=== PATIENT | male | born 1995 | race Caucasian/White ===

== ENCOUNTER → 2021-04-18 13:42 | Outpatient (BNVA) | payer OTHER, SELFPAY | PROVIDERS: Visit Provider Nurse Practitioner Family | DX: Z20.822 Contact with and (suspected) exposure to COVID-19 (principal) | CPT/HCPCS: 87635 ==

== ENCOUNTER → 2024-04-12 17:41 | Outpatient (BNVA) | payer SELFPAY | PROVIDERS: Visit Provider Emergency Medicine | DX: R39.9 Unspecified symptoms and signs involving the genitourinary system (principal); R30.0 Dysuria | CPT/HCPCS: 81000; 87086 ==

== ENCOUNTER 2024-09-18 17:49 | Emergency (ER) | payer SELFPAY ==
[2024-09-18 17:52] VITALS: BMI 30.7
[2024-09-18 18:10] LABS: Glucose Point of Care 102 mg/dL (70-110)
[2024-09-18 18:12] VITALS: BP 167/103; PULSE 101; RESP 13; O2SAT 98
--- NOTE | 2024-09-18 18:15 | CTR_ITS ---
PROCEDURE INFORMATION: Exam: CT Head Without Contrast Exam date and time: 09/18/2024 6:35 PM Age: 29 years old Clinical indication: Stroke-like symptoms; Left upper extremity numbness/paresthesia; Additional info: Symptoms of acute stroke TECHNIQUE: Imaging protocol: Computed tomography of the head without contrast. Radiation optimization: All CT scans at this facility use at least one of these dose optimization techniques: automated exposure control; mA and/or kV adjustment per patient size (includes targeted exams where dose is matched to clinical indication); or iterative reconstruction. Other technique: STROKE PROTOCOL was implemented. COMPARISON: No relevant prior studies available. RADIATION DOSE METRICS: Total DLP (mGy-cm): 75423.58 FINDINGS: Brain: Normal. No hemorrhage. Unremarkable white matter. No mass effect. Cerebral ventricles: No ventriculomegaly. Paranasal sinuses: Visualized sinuses are unremarkable. No fluid levels. Mastoid air cells: Visualized mastoid air cells are well aerated. Bones: Unremarkable. No acute fracture. Soft tissues: Unremarkable. CT/CT head thrombolytic 50152 IMPRESSION: No acute intracranial abnormality on CT. Further evaluation with MR may be considered if there is persistent suspicion for occult ischemia or other significant intracranial changes. ASSESSMENT: ASPECTS ([place] Stroke Program Early CT Score) is 10.
--- NOTE | 2024-09-18 18:15 | ECG_ITS ---
[facility] Test Date: 2024-09-18 Pat Name: Jong Rowell Department: Room: Gender: Male Field Contractor: : 1995 Requested By: Christian Patel Order Number: [id number] Claus MD: Joe Andrade M.D. Measurements Intervals [place] Rate: 84 P: 52 OK: 163 QRS: 77 QRSD: 99 T: 39 QT: 343 QTc: 407 Interpretive Statements SINUS RHYTHM No previous ECG available for comparison Electronically Signed On 09-19-2024 21:38:15 TRANSMISSIONS SYSTEMS OPERATOR by Joe Andrade M.D. [email or web address]
[2024-09-18 18:31] LABS: Basophils # 0.1 10^3/uL (0.0-0.1); Basophils % 0.6 %; Eosinophils # 0.3 10^3/uL (0.0-0.8); Eosinophils % 3.5 %; Hematocrit 44.7 % (37-53); Lymphocytes % 25.1 %; Mean Corpuscular HGB Conc 35.3 g/dL (30-55); Mean Corpuscular Hemoglobin 29.8 pg (27-33); Mean Corpuscular Volume 84.3 fl (82-101); Monocytes # 0.7 10^3/uL (0.2-0.9); Monocytes % 8.3 %; Neutrophils # 4.91 10^3/uL (1.8-7.7); Neutrophils % 62.1 %; Nucleated Red Blood Cells % 0 %; Platelet Count 284 10^3/cmm (157-399); Red Cell Distribution Width 11.9 % (12.1-15.1); White Blood Count 7.92 10^3/uL (3.29-11.43)
[2024-09-18 18:47] LABS: INR 0.91 (0.8-1.2); Partial Thromboplastin Time 31.7 SECONDS (23.9-36.7)
[2024-09-18 18:48] VITALS: BP 156/96; PULSE 85; O2SAT 94
[2024-09-18 18:54] LABS: Troponin(5th) Baseline < 6 ng/L (0-15)
--- NOTE | 2024-09-18 18:54 | ED_ITS ---
HPI - Neuro Symptoms/Deficit 2 General: Chief Complaint: Neuro Symptoms/Deficit Stated Complaint: HP left numbness Time Seen by Provider: 09/18/24 18:42 History of Present Illness: The patient presents to the ER with a chief complaint of elevated blood pressure, which was measured at 180/100. The patient reports a history of hypertension and high blood pressure. They also mention experiencing stress recently. The patient is experiencing symptoms of facial weakness, mainly affecting the eye and mouth. They deny any other symptoms of weakness or discoordination in their limbs. The patient has a history of headaches but is not currently experiencing one. They report no chest pain, shortness of breath, or issues with bodily functions such as urination and defecation. The patient notes increased urination today due to increased water intake. The patient was previously seen at an Urgent Care facility and was prescribed Acyclovir. Related Data Home Medications Medication Instructions Recorded Confirmed metoprolol succinate 50 mg 50 mg PO DAILY 09/18/24 09/18/24 tablet,extended release 24 hr Previous Rx's Medication Instructions Recorded acyclovir 800 mg tablet 800 mg PO TID 10 days #30 tabs 09/18/24 prednisone 10 mg tablet 25 mg (2.5 x 10 mg) PO BID 5 days 09/18/24 #25 tabs Allergies Allergy/AdvReac Type Severity Reaction Status Date / Time cefdinir Allergy Intermediate hives Verified 09/18/24 16:02 PFS ED 2 PFSH: Social History Smoking and tobacco/nicotine status: never used tobacco/nicotine Alcohol intake: current Alcohol intake frequency: holidays/special occasions only Substance/Drug Use: current Substance/Drug use frequency: Special occassions/opportunity only Physical Exam 2 Const: COMMON NORMALS: no acute distress, patient oriented x3, healthy appearing, alert and well nourished HENMT: COMMON NORMALS: normocephalic HEAD & SCALP: normocephalic Eye: COMMON NORMALS: EOMs intact bilaterally Neck/C-Spine: COMMON NORMALS: full ROM and supple Resp: COMMON NORMALS: normal respiratory effort, No retractions and clear to auscultation bilaterally AUSCULTATION: clear to auscultation bilaterally Cardio: COMMON NORMALS: regular rate, regular rhythm, No gallops present (Cardio) and No murmurs present (Cardio) RATE: regular rate RHYTHM: r egular rhythm GI: COMMON NORMALS: Soft to palpation and non-tender PALPATION: Yes Soft to palpation Extremity: GENERAL: Yes normal exam except as noted Neuro: COMMON NORMALS: patient oriented x3 SENSORIUM/ORIENTATION: Yes alert CRANIAL NERVES: Yes CN normal except as noted and Yes CN VII (facial) Laterality: left CN VII left: facial droop, flattened naso-labial fold, unable to puff cheeks, weak closing of eye(s) and asymmetrical smile Skin: COMMON NORMALS: no rashes or lesions noted GENERAL SKIN EXAM: no rashes or lesions noted Course 2 Vital Signs: Vital signs: Vital Signs Pulse Rate 85 09/18/24 18:48 Respiratory Rate 13 09/18/24 18:12 Blood Pressure 156/96 09/18/24 18:48 Pulse Oximetry 94 09/18/24 18:48 MDM - Neuro Symptoms/Deficit Medical Decision Making 29-year-old male presents to the emergency department for evaluation of decreased blink and facial droop on the left side. He was initially seen at the urgent care but due to preserved ability to raise eyebrows he was sent over for evaluation of stroke. The rest of the patient's cranial nerves were testing is normal. Patient symptoms were consistent with a facial nerve palsy. However the rest of his symptoms were reassuring. CT scan was normal as well as the rest of his labs. Patient was initially hypertensive and tachycardic. This improved as he rested and his anxiety lessened. Encouraged the patient to follow-up with his primary care physician regarding his high blood pressure. Patient was already prescribed acyclovir and prednisone by the urgent care. As the patient's eye and eyebrow were involved believe this to be a peripheral facial palsy versus a central facial palsy. Although, the patient could raise his eyebrow but when relaxed it still drooped compared to the other side. Discussed return precautions with the patient and he was discharged home in good condition. Lab Data 09/18/24 18:20 09/18/24 18:[address] 09/18/24 18:15 IMPRESSION: No acute intracranial abnormality on CT. Further evaluation with MR may be considered if there is persistent suspicion for occult ischemia or other significant intracranial changes. ASSESSMENT: ASPECTS ([place] Stroke Program Early CT Score) is 10. ADDENDUM: 09/18/24 3624 COMMENT: THIS REPORT CONTAINS FINDINGS THAT MAY BE CRITICAL TO PATIENT CARE. The exam findings were verbally communicated by me to CHRISTIAN Miller via telephone conference at 7:01 PM BEADING MACHINE OPERATOR on 09/18/2024. The findings were acknowledged and understood. Laboratory Results WBC 7.92 10^3/uL (3.29-11.43) 09/18/24 18:20 RBC 5.30 10^6/uL (3.85-5.65) 09/18/24 18:20 Hgb 15.80 g/dL (11.27-16.99) 09/18/24 18:20 Hct 44.7 % (37-53) 09/18/24 18:20 MCV 84.3 fl (82-101) 09/18/24 18:20 MCH 29.8 pg (27-33) 09/18/24 18:20 MCHC 35.3 g/dL (30-55) 09/18/24 18:20 RDW 11.9 % (12.1-15.1) L 09/18/24 18:20 Plt Count 284 10^3/cmm (157-399) 09/18/24 18:20 MPV 9.0 fL (7.4-10.4) 09/18/24 18:20 Neut % (Auto) 62.1 % 09/18/24 18:20 Lymph % (Auto) 25.1 % 09/18/24 18:20 [place] % (Auto) 8.3 % 09/18/24 18:20 Eos % (Auto) 3.5 % 09/18/24 18:20 Baso % (Auto) 0.6 % 09/18/24 18:20 Neut # (Auto) 4.91 10^3/uL (1.8-7.7) 09/18/24 18:20 Lymph # (Auto) 2.0 10^3/uL (0.8-4.8) 09/18/24 18:20 [place] # (Auto) 0.7 10^3/uL (0.2-0.9) 09/18/24 18:20 Eos # (Auto) 0.3 10^3/uL (0.0-0.8) 09/18/24 18:20 Baso # (Auto) 0.1 10^3/uL (0.0-0.1) 09/18/24 18:20 Nucleated RBC % (auto) 0 % 09/18/24 18:20 Nucleated RBCs # 0.0 /100WBC 09/18/24 18:20 PT 12.90 SECONDS (12.1-14.9) 09/18/24 18:20 INR 0.91 (0.8-1.2) 09/18/24 18:20 APTT 31.7 SECONDS (23.9-36.7) 09/18/24 18:20 Sodium 138 mmol/L (136-145) 09/18/24 18:20 Potassium 4.1 mmol/L (3.5-5.1) 09/18/24 18:20 Chloride 101 mmol/L (98-107) 09/18/24 18:20 Carbon Dioxide 25 mmol/L (22-29) 09/18/24 18:20 Anion Gap 16.1 (5-19) 09/18/24 18:20 BUN 9 mg/dL (6-20) 09/18/24 18:20 Creatinine 0.8 mg/dL (0.7-1.2) 09/18/24 18:20 GFR Calculation 114.3 mL/min (90-130) 09/18/24 18:20 Glucose 100 mg/dL (65-115) 09/18/24 18:20 POC Glucose 102 mg/dL (70-110) 09/18/24 18:06 Calculated Osmolality 285 mOsm/kg (285-295) 09/18/24 18:20 Calcium 9.9 mg/dL (8.5-10.5) 09/18/24 18:20 Total Bilirubin 0.4 mg/dL (0.15-1.2) 09/18/24 18:20 AST 35 U/L (0-40) 09/18/24 18:20 ALT 90 U/L (0-41) H 09/18/24 18:20 Alkaline Phosphatase 93 U/L (40-130) 09/18/24 18:20 Troponin T Baseline < 6 ng/L (0-15) 09/18/24 18:20 Total Protein 8.0 g/dL (6.6-8.7) 09/18/24 18:20 Albumin 5.0 g/dL (3.5-5.2) 09/18/24 18:20 Globulin 3.0 g/dL (1.3-4.6) 09/18/24 18:20 All radiology interpretation(s) finalized by discharge Discharge Plan Discharge Patient Disposition: Home Clinical Impression: Facial paralysis/[place] palsy Condition: Stable Prescriptions: No Action metoprolol succinate 50 mg tablet extended release 24 hr 50 mg PO DAILY acyclovir 800 mg tablet 800 mg PO TID 10 Days Qty: 30 0RF prednisone 10 mg tablet 25 mg PO BID 5 Days Qty: 25 0RF Discharge Orders: Discharge ED (Routine); Ordered 09/18/24 Ordered By: Christian Law Discharge Diet: Regular Discharge Activity: Resume usual activity Patient Instructions: Opioid Safety, Pain Management Activity Restrictions/Additional Instructions: No physical activity limitations. Please take both medications that the urgent care prescribed you including acyclovir and prednisone. Coding Level of Care Code ED Boss Dyer for Radha Roberson
--- NOTE | 2024-09-18 18:56 | PC.NURSE ---
Assumed care from Grace DIANA at this time.
[2024-09-18 18:58] LABS: Alanine Aminotransferase 90 U/L (0-41); Alkaline Phosphatase 93 U/L (40-130); Anion Gap 16.1 (5-19); Aspartate Amino Transferase 35 U/L (0-40); Blood Urea Nitrogen 9 mg/dL (6-20); Calcium 9.9 mg/dL (8.5-10.5); Carbon Dioxide 25 mmol/L (22-29); Chloride 101 mmol/L (98-107); Creatinine Clr Calc Pharmacy 163.9871; Glomerular Filtration Rate 114.3 mL/min (90-130); Glucose 100 mg/dL (65-115); Osmolality Calculated 285 mOsm/kg (285-295); Potassium 4.1 mmol/L (3.5-5.1); Sodium 138 mmol/L (136-145); Total Bilirubin 0.4 mg/dL (0.15-1.2)
[2024-09-18 19:08] VITALS: BP 157/95; PULSE 83; O2SAT 95
== END 2024-09-18 19:04 | disposition home or self-care (01) ==
PROVIDERS: Emergency Provider General Practice
DX: G51.0 Bell's palsy (principal)
CPT/HCPCS: 36415; 36416; 70450; 80053; 82962; 84484; 85025; 85610; 85730; 93005; 99285

== ENCOUNTER → 2025-05-29 10:37 | Outpatient (BNVA) | payer OTHER, SELFPAY | PROVIDERS: Family Provider Family Medicine; PCP Family Medicine; Visit Provider Family Medicine | DX: D22.9 Melanocytic nevi, unspecified (principal) | CPT/HCPCS: 88304; 88342 ==